=== PATIENT | male | born 1950 ===

== ENCOUNTER 2017-08-07 10:40 | Outpatient (CLI) | payer OTHER ==
--- NOTE | 2017-08-07 11:58 | Ultrasound Report ---
ABDOMINAL ULTRASOUND: 08/07/17 10:40:00 CLINICAL: Lymphocytosis. FINDINGS: High-resolution ultrasound demonstrated a normal liver with normal size, contour and echogenicity. No liver mass. Normal hepatic vasculature and inferior vena cava. Normal gallbladder and bile ducts. The gallbladder wall measures 2.0 mm in thickness and the common bile duct measures 6.1 mm diameter. Normal pancreatic head and proximal body. The pancreatic tail is obscured by bowel gas. Normal abdominal aorta measuring 1.9 cm diameter. The spleen is enlarged and measures 15.7 cm in length. No splenic mass identified. Normal kidneys with normal echogenicity and normal non-dilated renal collecting systems and ureters. The right kidney measures 11.4 x 4.9 x 5.3cm. The left kidney measures 11.4 0.9 x 5.0cm. No renal mass or calculus. No mass, lymphadenopathy or ascites identified. IMPRESSION: Splenomegaly and otherwise negative abdomen.
== END 2017-08-07 10:41 | disposition home or self-care (01) ==
LOC: SPVWC 10:40
PROVIDERS: ATTEND Internal Medicine Hematology & Oncology
DX: D72.820 Lymphocytosis (symptomatic) (principal); R16.1 Splenomegaly, not elsewhere classified; I12.9 Hypertensive chronic kidney disease with stage 1 through stage 4 chronic kidney disease, or unspecified chronic kidney disease; N18.9 Chronic kidney disease, unspecified; E11.22 Type 2 diabetes mellitus with diabetic chronic kidney disease; E11.65 Type 2 diabetes mellitus with hyperglycemia
CPT/HCPCS: 76700